=== PATIENT | male | born 1940 | race Two or more races ===

== ENCOUNTER 2017-04-20 19:51 | Inpatient (IN) | payer MEDICARE ==
[~2017-04-20] VITALS: Ht 170.2 cm; Wt 85.9 kg
[~2017-04-20 19:51] MED LIST: ATOR40TA PO; CARV25TA2 PO; CLOP75TA15 PO; FENO145T38 PO; FISH OIL 500 M1 EACH PO; HYDR25SU32 RC; PANT40TA4 PO; RIVA15TA PO
[2017-04-20] MEDS ORDERED: normal saline 1000ML IV soln IVB STA (20:11)
[2017-04-20] MEDS ORDERED: famotidine/PF 10 mg/ml inj IV ONE ×2 (20:15→22:05)
[2017-04-20] MEDS ORDERED: methylPREDNISolone sod succ 125mg/2ml vial IV ONE ×2 (20:15→22:35)
[2017-04-20] MEDS ORDERED: diphenhydrAMINE 50 mg/ml inj IV ONE (20:15)
[2017-04-20] MEDS ORDERED: epiNEPHrine 1 mg/ml inj IM ONE (20:15)
[2017-04-20 20:24] LABS: BASOPHILS # (AUTO) 0.1 X10'3 (0-0.2); BASOPHILS % (AUTO) 1.1 % (0-1); EOSINOPHILS # (AUTO) 0.2 X10'3 (0-0.9); EOSINOPHILS % (AUTO) 3.5 % (0-6); HEMATOCRIT 32.9 % (42.0-52.0); LYMPHOCYTES % (AUTO) 38.9 % (21-51); MEAN CORPUSCULAR HGB CONC 33.5 % (33.0-36.5); MEAN CORPUSCULAR VOLUME 86.8 FL (78-98); MEAN PLATELET VOLUME 8.9 FL (7.4-10.4); MONOCYTES # (AUTO) 0.7 X10'3 (0-0.9); MONOCYTES % (AUTO) 13.2 % (2-12); NEUTROPHILS # (AUTO) 2.3 X10'3 (1.8-7.7); NEUTROPHILS % (AUTO) 43.3 % (42-75); PLATELET COUNT 175 X10'3 (140-440); RED BLOOD COUNT 3.78 X10'6 (4.70-6.10); RED CELL DISTRIBUTION WIDTH 17.4 % (11.5-14.5); WHITE BLOOD COUNT 5.2 X10'3 (4.5-11.0)
[2017-04-20] MEDS ORDERED: PANT-47 PO (20:41)
[2017-04-20] MEDS ORDERED: METF500T PO (20:41)
[2017-04-20] MEDS ORDERED: SOTA80TA69 PO (20:41)
[2017-04-20] MEDS ORDERED: LISI-600 PO (20:41)
[2017-04-20 20:47] LABS: ALANINE AMINOTRANSFERASE 29 U/L (12-78); ALBUMIN 3.1 G/DL (3.4-5.0); ALBUMIN/GLOBULIN RATIO 0.8 (1.1-1.5); ALKALINE PHOSPHATASE 51 IU/L (46-116); ANION GAP 12 (8-16); ASPARTATE AMINO TRANSFERASE 18 U/L (10-37); BILIRUBIN,TOTAL 0.3 MG/DL (0.1-1.0); BLOOD UREA NITROGEN 25 MG/DL (7-18); CALCIUM 8.7 MG/DL (8.5-10.1); CHLORIDE 109 MMOL/L (99-107); GLUCOSE 119 MG/DL (70-104); POTASSIUM 4.4 MMOL/L (3.5-5.1); SODIUM 143 MMOL/L (135-145); TOTAL CARBON DIOXIDE 22.1 MMOL/L (24-32); TOTAL PROTEIN 7.1 G/DL (6.4-8.2); eGFR 25 ML/MIN
[2017-04-20] MEDS ORDERED: temazepam 15mg capsule PO PRN (21:00)
[2017-04-20] MEDS ORDERED: epiNEPHrine 1 mg/ml inj IM STA (21:44)
[2017-04-20] MEDS ORDERED: diphenhydrAMINE 50 mg/ml inj IM ONE (22:05)
[2017-04-20] MEDS ORDERED: acetaminophen 325mg tablet PO PRN ×2 (22:20)
[2017-04-20] MEDS ORDERED: diphenhydrAMINE 50 mg/ml inj IV PRN (22:20)
[2017-04-20] MEDS ORDERED: furosemide 10 MG/1 ML 10ml inj IV ONE (22:20)
[2017-04-20] MEDS ORDERED: magnesium hydroxide 30ml (MOM) UD suspension PO PRN (22:20)
[2017-04-20] MEDS ORDERED: bisacodyl 10mg suppository rectal RC PRN (22:20)
[2017-04-20] MEDS ORDERED: morphine 2 MG/ML inj. syringe IV PRN ×2 (22:20)
[2017-04-20] MEDS ORDERED: ondansetron/PF 4mg/2ml inj IV PRN (22:20)
[2017-04-20] MEDS ORDERED: HYDROcodone/acetaminophen 10/325mg tab PO PRN (22:20)
[2017-04-20] MEDS ORDERED: acetaminophen 650mg rectal suppository RC PRN (22:20)
[2017-04-20] MEDS ORDERED: HYDROcodone/acetaminophen 5mg/325mg tablet PO PRN (22:20)
[2017-04-20] MEDS ORDERED: HYDROmorphone 1 mg/ml syringe IV PRN ×2 (22:20)
[2017-04-20] MEDS ORDERED: diphenhydrAMINE 25mg capsule PO PRN (22:20)
[2017-04-20] MEDS ORDERED: mag hydrox/Alum hydrox/simeth 30ml oral suspension PO PRN (22:20)
[2017-04-20] MEDS ORDERED: metoclopramide 5 mg/ml inj IV PRN (22:20)
[2017-04-20 22:24] LABS: CLARITY,URINE CLEAR (Clear); COLOR,URINE YELLOW (Yellow); GLUCOSE, URINE NEGATIVE (Neg); KETONES,URINE NEGATIVE (Neg); LEUKOCYTE ESTERASE ,URINE NEGATIVE (Neg); NITRITES, URINE NEGATIVE (Neg); OCCULT BLOOD,URINE NEGATIVE (Neg); PROTEIN,URINE NEGATIVE (Neg); UROBILINOGEN,URINE 0.2 E.U/dL (0.2-1.0)
[2017-04-20 22:31] LABS: UA COLLECTION TYPE CLN CATCH MIDSTREAM
[2017-04-20] MEDS ORDERED: glucagon, human recombinant 1mg kit SUBCUT PRN (22:35)
[2017-04-20] MEDS ORDERED: dextrose ORAL solution 15 GM/59 ML bottle PO PRN ×2 (22:35)
[2017-04-20] MEDS ORDERED: dextrose 50%-water 50ml dispensing syringe IV PRN ×2 (22:35)
[2017-04-20] MEDS ORDERED: MESSAGE TO PHARMACY PO ONE (22:35)
[2017-04-20 22:54] LABS: HEMOGLOBIN A1C 6.4 % (4.5-6.2)
[2017-04-20 23:01] LABS: MAGNESIUM 1.7 MG/DL (1.5-2.4)
[2017-04-21] MEDS ORDERED: epiNEPHrine 1 mg/ml inj IM SCH
[2017-04-21] MEDS ORDERED: epiNEPHrine 1 mg/ml inj IM ONE
[2017-04-21] MEDS: diphenhydrAMINE 50 mg/ml inj IV SCH ×3 (00:12→08:00)
[2017-04-21] MEDS: famotidine/PF 10 mg/ml inj IV SCH ×3 (02:00→20:42)
[2017-04-21] MEDS: methylPREDNISolone sod succ 125mg/2ml vial IV SCH ×3 (02:08→16:21)
[2017-04-21 02:35] LABS: BASOPHILS % (AUTO) 0.2 % (0-1); EOSINOPHILS # (AUTO) 0.1 X10'3 (0-0.9); HEMATOCRIT 34.5 % (42.0-52.0); HEMOGLOBIN 11.7 g/dl (14.0-17.9); LYMPHOCYTES # (AUTO) 0.9 X10'3 (1.1-4.8); LYMPHOCYTES % (AUTO) 17.4 % (21-51); MEAN CORPUSCULAR HEMOGLOBIN 29.3 PG (27.0-31.0); MEAN CORPUSCULAR HGB CONC 33.9 % (33.0-36.5); MEAN CORPUSCULAR VOLUME 86.3 FL (78-98); MEAN PLATELET VOLUME 8.9 FL (7.4-10.4); MONOCYTES % (AUTO) 0.9 % (2-12); NEUTROPHILS # (AUTO) 4.3 X10'3 (1.8-7.7); NEUTROPHILS % (AUTO) 80.5 % (42-75); PLATELET COUNT 175 X10'3 (140-440); RED CELL DISTRIBUTION WIDTH 16.6 % (11.5-14.5); WHITE BLOOD COUNT 5.4 X10'3 (4.5-11.0)
[2017-04-21 02:53] LABS: ALANINE AMINOTRANSFERASE 26 U/L (12-78); ALBUMIN 3.3 G/DL (3.4-5.0); ALBUMIN/GLOBULIN RATIO 0.8 (1.1-1.5); ALKALINE PHOSPHATASE 45 IU/L (46-116); ANION GAP 11 (8-16); ASPARTATE AMINO TRANSFERASE 19 U/L (10-37); BILIRUBIN,TOTAL 0.3 MG/DL (0.1-1.0); BLOOD UREA NITROGEN 29 MG/DL (7-18); BUN/CREATININE RATIO 13.8 (5.4-32.0); CALCIUM 9.1 MG/DL (8.5-10.1); CHLORIDE 108 MMOL/L (99-107); GLUCOSE 190 MG/DL (70-104); POTASSIUM 3.8 MMOL/L (3.5-5.1); SODIUM 143 MMOL/L (135-145); TOTAL CARBON DIOXIDE 24.2 MMOL/L (24-32); TOTAL PROTEIN 7.6 G/DL (6.4-8.2); eGFR 31 ML/MIN
[2017-04-21] MEDS: clopidogrel 75mg tablet PO SCH (06:07)
[2017-04-21] MEDS ORDERED: non-formulary drug (Carvedilol 1 TAB) PO SCH (08:00)
[2017-04-21] MEDS ORDERED: clopidogrel 75mg tablet PO SCH (08:00)
[2017-04-21 08:15] VITALS: BP 143/72
[2017-04-21] MEDS: pantoprazole 40mg Tablet.DR PO SCH (08:41)
[2017-04-21] MEDS: docusate sod 100mg capsule PO SCH ×2 (08:41→20:42)
[2017-04-21] MEDS: carVEDilol 12.5mg tablet PO SCH ×2 (08:42→20:00)
[2017-04-21] MEDS: sotalol 80mg tablet PO SCH ×2 (08:44→20:00)
[2017-04-21] MEDS: fenofibrate 145mg tablet PO SCH (08:44)
[2017-04-21] MEDS: heparin, porcine 5000 units/ml vial SQ SCH ×2 (08:45→20:41)
[2017-04-21 11:00] VITALS: BP 116/61
[2017-04-21] MEDS: insulin Lispro (HumaLOG) vial - multi-dose SQ SCH ×2 (14:07→19:13)
[2017-04-21] MEDS: Potassium Cl inj 20 MEQ in normal saline 1000ml 990 ML IV SCH ×2 (14:13→22:35)
[2017-04-21 17:29] VITALS: BP 119/57
[2017-04-21 19:00] VITALS: BP 114/53
[2017-04-21] MEDS ORDERED: ATORVASTATIN CALCIUM 40 MG PO SCH (21:00)
[2017-04-21] MEDS ORDERED: atorvastatin 20mg tablet PO SCH (21:00)
[2017-04-21 23:00] VITALS: BP 97/42
[2017-04-22] MEDS ORDERED: potassium Cl 20mEq in NS 1,000 ML IV SCH (00:08)
[2017-04-22] MEDS: methylPREDNISolone sod succ 125mg/2ml vial IV SCH ×2 (00:43→08:09)
[2017-04-22] MEDS ORDERED: potassium Cl 20mEq in NS 1,000 ML IV ONE (00:57)
[2017-04-22 03:00] VITALS: BP 114/51
[2017-04-22 06:00] VITALS: BP 103/72
[2017-04-22 07:28] LABS: ALANINE AMINOTRANSFERASE 26 U/L (12-78); ALBUMIN/GLOBULIN RATIO 0.8 (1.1-1.5); ALKALINE PHOSPHATASE 35 IU/L (46-116); ANION GAP 12 (8-16); ASPARTATE AMINO TRANSFERASE 30 U/L (10-37); BILIRUBIN,TOTAL 0.4 MG/DL (0.1-1.0); BLOOD UREA NITROGEN 42 MG/DL (7-18); BUN/CREATININE RATIO 22.1 (5.4-32.0); CALCIUM 8.4 MG/DL (8.5-10.1); CHLORIDE 109 MMOL/L (99-107); GLUCOSE 179 MG/DL (70-104); POTASSIUM 4.1 MMOL/L (3.5-5.1); SODIUM 143 MMOL/L (135-145); TOTAL CARBON DIOXIDE 22.5 MMOL/L (24-32); TOTAL PROTEIN 6.9 G/DL (6.4-8.2); eGFR 34 ML/MIN
[2017-04-22] MEDS ORDERED: losartan 50mg tablet PO SCH (08:00)
[2017-04-22] MEDS: pantoprazole 40mg Tablet.DR PO SCH (08:07)
[2017-04-22] MEDS: famotidine/PF 10 mg/ml inj IV SCH (08:07)
[2017-04-22] MEDS: clopidogrel 75mg tablet PO SCH (08:07)
[2017-04-22] MEDS: docusate sod 100mg capsule PO SCH (08:07)
[2017-04-22] MEDS: sotalol 80mg tablet PO SCH (09:25)
[2017-04-22] MEDS: carVEDilol 12.5mg tablet PO SCH (09:26)
[2017-04-22] MEDS: fenofibrate 145mg tablet PO SCH (09:26)
[2017-04-22] MEDS: heparin, porcine 5000 units/ml vial SQ SCH (09:27)
[2017-04-22] MEDS ORDERED: pneumococcal 23-VAL P-sac vacc 25 mcg/0.5ml vial IMVAC ONE (10:00)
[2017-04-22] MEDS: insulin Lispro (HumaLOG) vial - multi-dose SQ SCH (10:24)
[2017-04-22 11:00] VITALS: BP 114/54
[2017-04-22] MEDS ORDERED: DIPH-423 PO (11:59)
[2017-04-22] MEDS ORDERED: PRED10TA23 PO (11:59)
[2017-04-22] MEDS ORDERED: EPIN0.3P8 IM (11:59)
[2017-04-22] MEDS ORDERED: LOSA50TA37 PO (11:59)
== END 2017-04-22 13:30 | disposition home or self-care (01) | DRG 683 ==
LOC: ER 19:51 → ED HOLD 22:20 → EDBEDREQ 04-21 04:00 → PCU 3S 04-21 08:36
PROVIDERS: ADMIT Family Medicine; ATTEND Internal Medicine
DX: N17.9 Acute kidney failure, unspecified (principal); I42.0 Dilated cardiomyopathy; E11.22 Type 2 diabetes mellitus with diabetic chronic kidney disease; E11.65 Type 2 diabetes mellitus with hyperglycemia; E78.00 Pure hypercholesterolemia, unspecified; E78.5 Hyperlipidemia, unspecified; I12.9 Hypertensive chronic kidney disease with stage 1 through stage 4 chronic kidney disease, or unspecified chronic kidney disease; I25.10 Atherosclerotic heart disease of native coronary artery without angina pectoris; K21.9 Gastro-esophageal reflux disease without esophagitis; N18.3 Chronic kidney disease, stage 3 (moderate); T46.4X5A Adverse effect of angiotensin-converting-enzyme inhibitors, initial encounter; T78.3XXA Angioneurotic edema, initial encounter; I25.2 Old myocardial infarction; Z95.1 Presence of aortocoronary bypass graft; Z95.810 Presence of automatic (implantable) cardiac defibrillator; Z88.0 Allergy status to penicillin; Z88.6 Allergy status to analgesic agent; Z79.02 Long term (current) use of antithrombotics/antiplatelets; Z79.899 Other long term (current) drug therapy; Z79.84 Long term (current) use of oral hypoglycemic drugs; Z86.718 Personal history of other venous thrombosis and embolism; Z86.79 Personal history of other diseases of the circulatory system; Z87.11 Personal history of peptic ulcer disease; Y92.89 Other specified places as the place of occurrence of the external cause
CPT/HCPCS: 36415; 71045; 80053; 81003; 82948; 83036; 83735; 83880; 84484; 85025; 86885; 86900; 86901; 87070; 93005; 93306; 96361; 96372; 96374; 96375; 99285; J0171; J1200; J1644; J1940; J2930; J3480; J3490; J7030

== ENCOUNTER 2017-08-29 10:21 | Emergency (ER) | payer MEDICARE ==
[~2017-08-29] VITALS: Ht 177.8 cm; Wt 82.8 kg
[~2017-08-29 10:21] MED LIST changes: +DIPH-423 PO; +EPIN0.3P8 IM; -HYDR25SU32 RC; +LOSA50TA37 PO; +PANT-47 PO; -PANT40TA4 PO; -RIVA15TA PO; +SOTA80TA73 PO
[2017-08-29 10:43] LABS: BASOPHILS % (AUTO) 0.4 % (0-1); EOSINOPHILS # (AUTO) 0.1 X10'3 (0-0.9); EOSINOPHILS % (AUTO) 1.6 % (0-6); HEMOGLOBIN 12.2 g/dl (14.0-17.9); LYMPHOCYTES # (AUTO) 1.8 X10'3 (1.1-4.8); LYMPHOCYTES % (AUTO) 35.4 % (21-51); MEAN CORPUSCULAR HEMOGLOBIN 29.8 PG (27.0-31.0); MEAN CORPUSCULAR HGB CONC 33.8 % (33.0-36.5); MEAN CORPUSCULAR VOLUME 88.1 FL (78-98); MEAN PLATELET VOLUME 8.8 FL (7.4-10.4); MONOCYTES # (AUTO) 0.4 X10'3 (0-0.9); MONOCYTES % (AUTO) 8.2 % (2-12); NEUTROPHILS # (AUTO) 2.7 X10'3 (1.8-7.7); NEUTROPHILS % (AUTO) 54.4 % (42-75); PLATELET COUNT 146 X10'3 (140-440); RED BLOOD COUNT 4.09 X10'6 (4.70-6.10); RED CELL DISTRIBUTION WIDTH 16.2 % (11.5-14.5)
[2017-08-29 10:53] LABS: INR 1.1 INR; PARTIAL THROMBOPLASTIN TIME 24 SECONDS (22-32); PROTHROMBIN TIME 11.3 SECONDS (9.0-12.0)
[2017-08-29 10:57] LABS: ALANINE AMINOTRANSFERASE 26 U/L (12-78); ALBUMIN 3.6 G/DL (3.4-5.0); ALBUMIN/GLOBULIN RATIO 1.1 (1.1-1.5); ALKALINE PHOSPHATASE 47 IU/L (46-116); ANION GAP 10 (8-16); ASPARTATE AMINO TRANSFERASE 18 U/L (10-37); BILIRUBIN,TOTAL 0.5 MG/DL (0.1-1.0); BLOOD UREA NITROGEN 37 MG/DL (7-18); BUN/CREATININE RATIO 19.6 (5.4-32.0); CHLORIDE 108 MMOL/L (99-107); CREATININE 1.89 MG/DL (0.60-1.10); GLUCOSE 177 MG/DL (70-104); POTASSIUM 4.8 MMOL/L (3.5-5.1); SODIUM 139 MMOL/L (135-145); TOTAL CARBON DIOXIDE 21.4 MMOL/L (24-32); eGFR 35 ML/MIN
[2017-08-29 11:07] VITALS: BP 137/75
[2017-08-29] MEDS ORDERED: METH4TAB81 PO (11:34)
[2017-08-29] MEDS ORDERED: GABA-530 PO (11:34)
== END 2017-08-29 11:51 | disposition home or self-care (01) ==
LOC: ER 10:22
DX: R07.9 Chest pain, unspecified (principal); M54.2 Cervicalgia; I25.10 Atherosclerotic heart disease of native coronary artery without angina pectoris; E78.00 Pure hypercholesterolemia, unspecified; I10 Essential (primary) hypertension; I25.2 Old myocardial infarction; E11.9 Type 2 diabetes mellitus without complications; Z86.718 Personal history of other venous thrombosis and embolism; Z95.1 Presence of aortocoronary bypass graft; Z95.0 Presence of cardiac pacemaker; Z88.0 Allergy status to penicillin; Z88.6 Allergy status to analgesic agent; Z79.899 Other long term (current) drug therapy
CPT/HCPCS: 36415; 71045; 80053; 84484; 85025; 85610; 85730; 93005; 99285

== ENCOUNTER 2018-08-09 21:45 | Emergency (ER) | payer MEDICARE ==
[~2018-08-09] VITALS: Ht 175.3 cm; Wt 80.0 kg
[~2018-08-09 21:45] MED LIST changes: +GABA-530 PO; -LOSA50TA37 PO; +LOSA50TA64 PO; +METH4TAB81 PO
[2018-08-09] MEDS ORDERED: normal saline 1000ML IV soln IVB ONE (22:05)
[2018-08-09] MEDS ORDERED: diphenhydrAMINE 25mg capsule PO ONE (22:05)
[2018-08-09] MEDS ORDERED: meclizine 12.5mg tablet PO ONE (22:05)
[2018-08-09 22:25] LABS: BASOPHILS % (AUTO) 0.8 % (0-1); EOSINOPHILS # (AUTO) 0.2 X10'3 (0-0.9); EOSINOPHILS % (AUTO) 3.9 % (0-6); HEMOGLOBIN 12.4 g/dl (14.0-17.9); LYMPHOCYTES % (AUTO) 36.9 % (21-51); MEAN CORPUSCULAR HEMOGLOBIN 29.3 PG (27.0-31.0); MEAN CORPUSCULAR HGB CONC 33.4 g/dL (33.0-36.5); MEAN CORPUSCULAR VOLUME 87.7 FL (78-98); MONOCYTES # (AUTO) 0.9 X10'3 (0-0.9); MONOCYTES % (AUTO) 15.6 % (2-12); NEUTROPHILS # (AUTO) 2.4 X10'3 (1.8-7.7); NEUTROPHILS % (AUTO) 42.8 % (42-75); PLATELET COUNT 136 X10'3 (140-440); RED BLOOD COUNT 4.22 X10'6 (4.70-6.10); RED CELL DISTRIBUTION WIDTH 15.9 % (11.5-14.5); WHITE BLOOD COUNT 5.5 X10'3 (4.5-11.0)
[2018-08-09 22:38] LABS: ALANINE AMINOTRANSFERASE 26 U/L (12-78); ALBUMIN 3.4 G/DL (3.4-5.0); ALBUMIN/GLOBULIN RATIO 0.9 (1.1-1.5); ALKALINE PHOSPHATASE 68 IU/L (46-116); ANION GAP 10 (8-16); ASPARTATE AMINO TRANSFERASE 16 U/L (10-37); BILIRUBIN,TOTAL 0.3 MG/DL (0.1-1.0); BLOOD UREA NITROGEN 27 MG/DL (7-18); BUN/CREATININE RATIO 22.1 (5.4-32.0); CALCIUM 9.4 MG/DL (8.5-10.1); CHLORIDE 106 MMOL/L (99-107); CREATININE 1.22 MG/DL (0.60-1.10); GLUCOSE 115 MG/DL (70-104); MAGNESIUM 1.9 MG/DL (1.5-2.4); POTASSIUM 3.7 MMOL/L (3.5-5.1); SODIUM 138 MMOL/L (135-145); TOTAL CARBON DIOXIDE 21.7 MMOL/L (24-32); eGFR 57 ML/MIN
[2018-08-09] MEDS ORDERED: MECL-111 PO (22:51)
[2018-08-09 23:28] VITALS: BP 133/69
== END 2018-08-09 23:30 | disposition home or self-care (01) ==
LOC: ER 21:45
DX: R42 Dizziness and giddiness (principal); I25.10 Atherosclerotic heart disease of native coronary artery without angina pectoris; E78.00 Pure hypercholesterolemia, unspecified; I10 Essential (primary) hypertension; I25.2 Old myocardial infarction; E11.9 Type 2 diabetes mellitus without complications; Z86.718 Personal history of other venous thrombosis and embolism; Z95.1 Presence of aortocoronary bypass graft; Z95.0 Presence of cardiac pacemaker; Z88.0 Allergy status to penicillin; Z88.6 Allergy status to analgesic agent; Z79.899 Other long term (current) drug therapy
CPT/HCPCS: 36415; 71045; 80053; 83735; 84484; 85025; 93005; 96360; 99284; J7030; J8597; Q0163

== ENCOUNTER 2022-07-28 08:04 | Outpatient (CLI) | payer MEDICARE ==
[~2022-07-28 08:04] MED LIST changes: +APIX5TAB3 PO; -ATOR40TA PO; +ATOR40TA72 PO; -CARV25TA2 PO; -CLOP75TA15 PO; +CLOP75TA34 PO; -DIPH-423 PO; -EPIN0.3P8 IM; +FENO145T25 PO; -FENO145T38 PO; -FISH OIL 500 M1 EACH PO; +FLO0.4C PO; +FURO40TA4 PO; -GABA-530 PO; +LINA5TAB4 PO; -LOSA50TA64 PO; -METH4TAB81 PO; -PANT-47 PO; +POTA20PA40 PO; +SACU1TAB PO; +SOTA80TA PO; -SOTA80TA73 PO
== END 2022-07-28 23:59 | disposition home or self-care (01) ==
LOC: CARD DIAG 08:04
PROVIDERS: ATTEND Internal Medicine Cardiovascular Disease
DX: I08.1 Rheumatic disorders of both mitral and tricuspid valves (principal); R06.02 Shortness of breath; I42.9 Cardiomyopathy, unspecified
CPT/HCPCS: 93306

== ENCOUNTER 2022-11-21 10:24 | Inpatient (IN) | payer MEDICARE ==
[~2022-11-21] VITALS: Ht 170.2 cm; Wt 77.9 kg
[~2022-11-21 10:24] MED LIST changes: +AMI200T PO; -CLOP75TA34 PO; +DAPA10TA PO; +EMPA10TA PO; -FENO145T25 PO; +POTA10CA85 PO; -POTA20PA40 PO; +SACU1TAB; -SOTA80TA PO
[2022-11-21 11:08] LABS: BASOPHILS % (AUTO) 0.3 % (0-1); EOSINOPHILS % (AUTO) 0 % (0-6); HEMOGLOBIN 7.8 g/dl (14.0-17.9); LYMPHOCYTES # (AUTO) 0.3 X10'3 (1.1-4.8); LYMPHOCYTES % (AUTO) 6.4 % (21-51); MEAN CORPUSCULAR HEMOGLOBIN 32.6 PG (27.0-31.0); MEAN CORPUSCULAR HGB CONC 32.6 g/dL (33.0-36.5); MEAN CORPUSCULAR VOLUME 100.1 FL (78-98); MONOCYTES # (AUTO) 0.5 X10'3 (0-0.9); MONOCYTES % (AUTO) 9.4 % (2-12); NEUTROPHILS # (AUTO) 4.3 X10'3 (1.8-7.7); NEUTROPHILS % (AUTO) 83.9 % (42-75); PLATELET COUNT 139 X10'3 (140-440); RED CELL DISTRIBUTION WIDTH 16.2 % (11.5-14.5); WHITE BLOOD COUNT 5.2 X10'3 (4.5-11.0)
[2022-11-21 11:19] LABS: ALANINE AMINOTRANSFERASE 19 U/L (12-78); ALBUMIN 2.6 G/DL (3.4-5.0); ALBUMIN/GLOBULIN RATIO 0.7 (1.1-1.5); ALKALINE PHOSPHATASE 111 IU/L (46-116); ANION GAP 10 (8-16); ASPARTATE AMINO TRANSFERASE 20 U/L (10-37); BLOOD UREA NITROGEN 35 MG/DL (7-18); BUN/CREATININE RATIO 24.3 (10.0-20.0); CALCIUM 8.4 MG/DL (8.5-10.1); CHLORIDE 102 MMOL/L (99-107); CREATININE 1.44 MG/DL (0.60-1.10); GLUCOSE 129 MG/DL (70-104); POTASSIUM 4.8 MMOL/L (3.5-5.1); SODIUM 134 MMOL/L (135-145); TOTAL CARBON DIOXIDE 22.1 MMOL/L (24-32); TOTAL PROTEIN 6.4 G/DL (6.4-8.2); eCRCL 36 ML/MIN; eGFR 47 ML/MIN
[2022-11-21 11:28] LABS: PRO BRAIN NATRIURETIC PEPTIDE 5490 PG/ML (0-450)
[2022-11-21 12:18] LABS: INR 1.4 INR; PROTHROMBIN TIME 15.2 SECONDS (9.0-12.0)
[2022-11-21] MEDS ORDERED: pantoprazole 40 MG vial IV ONE (13:20)
[2022-11-21 13:55] VITALS: BP 117/64; PULSE 77; RESP 22; TEMP 97.3
[2022-11-21 14:15] VITALS: BP 115/60; PULSE 78; RESP 19; TEMP 97.5
[2022-11-21 14:38] LABS: OCCULT BLOOD STOOL POSITIVE (Neg)
--- NOTE | 2022-11-21 15:07 | NUR ---
JOHN HELMQ PROTONIX FROM PHARMACY
--- NOTE | 2022-11-21 15:08 | NUR ---
PHARMACIST WILL CHG PROTONIX ORD SO RN MAY OBTAIN FROM [employer].
[2022-11-21] MEDS ORDERED: pantoprazole 40 MG/NS 100ML add-vantage BAG IV ONE (15:10)
[2022-11-21 15:15] VITALS: BP 114/56; PULSE 74; RESP 28; TEMP 97.7
[2022-11-21] MEDS ORDERED: magnesium Cl slow-release 64mg tablet PO PRN (15:15)
[2022-11-21] MEDS ORDERED: HYDROcodone/acetaminophen 5mg/325mg tablet PO PRN (15:15)
[2022-11-21] MEDS ORDERED: potassium Cl 40MEQ/1/2NS 520ml 520 ML IV PRN (15:15)
[2022-11-21] MEDS ORDERED: mag hydrox/Alum hydrox/simeth 30ml oral suspension PO PRN (15:15)
[2022-11-21] MEDS ORDERED: potassium Cl 20 mEq SR tablet PO PRN ×2 (15:15)
[2022-11-21] MEDS ORDERED: ondansetron 4mg rapidly disintigrating tab PO PRN (15:15)
[2022-11-21] MEDS ORDERED: magnesium hydroxide 30ml (MOM) UD suspension PO PRN (15:15)
[2022-11-21] MEDS ORDERED: ondansetron/PF 4mg/2ml inj IV PRN (15:15)
[2022-11-21] MEDS ORDERED: HYDROcodone/acetaminophen 10/325mg tab PO PRN (15:15)
[2022-11-21] MEDS ORDERED: magnesium 4gm in 100ml NS 100 ML IV PRN (15:15)
[2022-11-21] MEDS ORDERED: acetaminophen 325mg tablet PO PRN ×2 (15:15)
[2022-11-21] MEDS ORDERED: magnesium 2GM in 50ml NS 50 ML IV PRN (15:15)
--- NOTE | 2022-11-21 15:46 | NUR ---
RN ATTEMPTING TO GET 2ND IV SO PROTONIX CAN BE ADMIN. BLOOD IS INFUSING AT THIS TIME. PT IS A HARD STICK.
[2022-11-21 16:15] VITALS: BP 114/71; PULSE 70; RESP 21; TEMP 97.8
--- NOTE | 2022-11-21 18:20 | NUR ---
RN CALLED BLOOD BANK TO CK HOW MANY UNITS OF BLOOD PT IS TO RECEIVE D/T NOT SHOWING ON ORD. CHARGE NURSE NOTIFIED. PER [place] PT IS TO RECEIVE 1 UNIT. UNIT TRANSFUSED.
[2022-11-21] MEDS: normal saline 1000ml 1,000 ML IV SCH (19:09)
[2022-11-21] MEDS: pantoprazole 40MG/NS 100ML BAG 100 ML IV SCH ×2 (19:09→19:10)
--- NOTE | 2022-11-21 19:25 | NUR ---
RN ATTEMPTED TO CALL REPORT AND WAS PUT ON HOLD FOR 5+MINS. RN WILL TRY AGAIN.
[2022-11-21] MEDS ORDERED: dextrose 50%-water 50ml dispensing syringe IV PRN ×2 (19:50)
[2022-11-21] MEDS ORDERED: insulin Lispro (HumaLOG) vial - multi-dose SQ SCH (19:50)
[2022-11-21] MEDS ORDERED: DEXTROSE 15 GM of carb/4 tabs (each vial/BOTTLE has 4 tablets) PO PRN ×2 (19:50)
[2022-11-21] MEDS ORDERED: glucagon, human recombinant 1mg kit SUBCUT PRN (19:50)
[2022-11-21] MEDS: docusate sod 100mg capsule PO SCH (20:00)
[2022-11-21] MEDS: K and/or MAG REPLACEMENT MC SCH (20:00)
[2022-11-21 20:21] VITALS: RESP 16; O2SAT 93
[2022-11-21 20:30] VITALS: BP 97/56; PULSE 60; RESP 16; TEMP 97.3; O2SAT 93
[2022-11-21] MEDS ORDERED: temazepam 15mg capsule PO PRN (21:00)
[2022-11-21] MEDS: insulin glargine (Lantus) pen - multi-dose SQ SCH (21:00)
[2022-11-21] MEDS: furosemide 40mg/4ml inj IV SCH (23:15)
[2022-11-22] VITALS (16 sets, daily range): BP systolic 93–110; BP diastolic 39–60; PULSE 65–78; RESP 13–24; TEMP 97–97.5; O2SAT 91–100
[2022-11-22] MEDS: pantoprazole 40MG/NS 100ML BAG 100 ML IV SCH ×5 (02:31→21:35)
[2022-11-22 06:42] LABS: ALANINE AMINOTRANSFERASE 15 U/L (12-78); ALBUMIN 2.3 G/DL (3.4-5.0); ALBUMIN/GLOBULIN RATIO 0.6 (1.1-1.5); ALKALINE PHOSPHATASE 102 IU/L (46-116); ANION GAP 16 (8-16); ASPARTATE AMINO TRANSFERASE 25 U/L (10-37); BILIRUBIN,TOTAL 2.3 MG/DL (0.1-1.0); BLOOD UREA NITROGEN 43 MG/DL (7-18); BUN/CREATININE RATIO 35.5 (10.0-20.0); CALCIUM 8.3 MG/DL (8.5-10.1); CHLORIDE 104 MMOL/L (99-107); CREATININE 1.21 MG/DL (0.60-1.10); GLUCOSE 106 MG/DL (70-104); MAGNESIUM 2.3 MG/DL (1.5-2.4); SODIUM 134 MMOL/L (135-145); TOTAL PROTEIN 5.9 G/DL (6.4-8.2); eCRCL 42 ML/MIN; eGFR 57 ML/MIN
[2022-11-22 06:45] LABS: POTASSIUM 5.5 MMOL/L (3.5-5.1)
[2022-11-22 06:46] LABS: BASOPHILS # (AUTO) 0.1 X10'3 (0-0.2); BASOPHILS % (AUTO) 1.1 % (0-1); EOSINOPHILS % (AUTO) 0 % (0-6); HEMATOCRIT 29.3 % (42.0-52.0); HEMOGLOBIN 9.5 g/dl (14.0-17.9); LYMPHOCYTES # (AUTO) 0.4 X10'3 (1.1-4.8); LYMPHOCYTES % (AUTO) 6.3 % (21-51); MEAN CORPUSCULAR HEMOGLOBIN 30.2 PG (27.0-31.0); MEAN CORPUSCULAR HGB CONC 32.5 g/dL (33.0-36.5); MEAN CORPUSCULAR VOLUME 93.1 FL (78-98); MEAN PLATELET VOLUME 8.3 FL (7.4-10.4); MONOCYTES # (AUTO) 0.7 X10'3 (0-0.9); MONOCYTES % (AUTO) 9.7 % (2-12); NEUTROPHILS # (AUTO) 5.8 X10'3 (1.8-7.7); NEUTROPHILS % (AUTO) 82.9 % (42-75); PLATELET COUNT 118 X10'3 (140-440); RED BLOOD COUNT 3.15 X10'6 (4.70-6.10); RED CELL DISTRIBUTION WIDTH 27.6 % (11.5-14.5)
--- NOTE | 2022-11-22 07:23 | NUR ---
[facility] CO2 14.0
[2022-11-22] MEDS: furosemide 40mg/4ml inj IV SCH ×2 (07:54→20:00)
[2022-11-22 08:33] LABS: ANISOCYTOSIS 3+; PLATELET ESTIMATE DECREASED
[2022-11-22 08:34] LABS: MICROCYTOSIS 1+
[2022-11-22 08:35] LABS: ACANTHOCYTES FEW; BURR CELLS 1+
[2022-11-22] MEDS: docusate sod 100mg capsule PO SCH ×2 (08:47→21:35)
--- NOTE | 2022-11-22 09:30 | NUR ---
AGREED WITH MOST OF ASSESSMENT OF WISNTON, BAD CREDIT COLLECTOR, CHARTED CHANGES
[2022-11-22] MEDS ORDERED: digoxin 250mcg/ml 2ml ampule IV ONE (12:45)
[2022-11-22 14:17] LABS: CREATINE KINASE 206 U/L (39-308); PRO BRAIN NATRIURETIC PEPTIDE 15580 PG/ML (0-450)
--- NOTE | 2022-11-22 15:15 | NUR ---
Patient in room PCU 3012. I have received report from SUMAN Farley and had the opportunity to ask questions and assume patient care.
[2022-11-22] MEDS ORDERED: fentaNYL/PF 50MCG/1 ML 2ML syringe ONE (17:49)
[2022-11-22] MEDS ORDERED: LIDOcaine Viscous 15ml cup ONE (17:49)
[2022-11-22] MEDS ORDERED: MIDAZolam 1 MG/ML 5ML VIAL ONE (17:49)
--- NOTE | 2022-11-22 18:30 | NUR ---
Problems reprioritized. Patient report given, questions answered & plan of care reviewed with JOHN Sanchez.
--- NOTE | 2022-11-22 18:31 | NUR ---
Patient in room PCU 3012. I have received report from JOHN Varghese and had the opportunity to ask questions and assume patient care. Patient is with IR for EGD at this time.
[2022-11-22] MEDS: K and/or MAG REPLACEMENT MC SCH ×2 (20:00→22:18)
[2022-11-22] MEDS: insulin glargine (Lantus) pen - multi-dose SQ SCH (21:00)
[2022-11-22] MEDS: DOBUTamine-DoBUTrex 500mg/D5W 250 ML IV SCH (21:34)
[2022-11-23] VITALS (30 sets, daily range): BP systolic 77–103; BP diastolic 36–58; PULSE 54–88; RESP 16–27; TEMP 96–97.8; O2SAT 90–98
[2022-11-23] MEDS: pantoprazole 40MG/NS 100ML BAG 100 ML IV SCH ×4 (01:00→15:11)
--- NOTE | 2022-11-23 01:38 | NUR ---
Patient seems more confused since coming back from EGD, in report I was told he was A&Ox4. Now he is requiring a non-rebreather mask and is struggling to breath, keeps pulling mask off. I cld Dr. Toledo and he ok a ABG and CXR.
[2022-11-23 02:04] LABS: ABG BASE EXCESS -12.3 mmol/L (-2.0-2.0); ABG HCO3 15.3 mmol/L (22.0-26.0); ABG OXYGEN SATURATION 98.8 % (94-97); ABG PCO2 (T) 40.5 mmHg (35.0-48.0); ABG PH (T) 7.191 (7.340-7.440); ABG PO2 (T) 151.6 mmHg (75.0-100.0); ALLEN'S TEST Modified; FCOHb 0.3 % (0.0-3.9); FHHb 1.2 % (0.0-5.0); FLOW 16 L/min; FMetHb 0.5 % (0.0-1.5); MODE MASK - NRB; PATIENT TEMPERATURE 36.4; TOTAL HEMOGLOBIN 10.4 G/dl (14.0-17.9)
--- NOTE | 2022-11-23 02:10 | NUR ---
Dr. Toledo at bedside, advises he will put orders in for Bicarb, Newell and a UA. He also advised me to increase Dobutamine drip to 3
[2022-11-23] MEDS ORDERED: sodium bicarbonate (8.4%) 1 mEq/ml syringe IV ONE ×3 (02:15→05:35)
[2022-11-23 02:52] LABS: BILIRUBIN,URINE NEGATIVE (Neg); CLARITY,URINE SLIGHTLY CLOUDY (Clear); COLOR,URINE YELLOW (Yellow); GLUCOSE, URINE NEGATIVE (Neg); KETONES,URINE NEGATIVE (Neg); LEUKOCYTE ESTERASE ,URINE NEGATIVE (Neg); OCCULT BLOOD,URINE NEGATIVE (Neg); PH,URINE 5.5 (4.8-8.0); PROTEIN,URINE NEGATIVE (Neg); UROBILINOGEN,URINE 0.2 E.U/dL (0.2-1.0)
[2022-11-23 02:58] LABS: UA COLLECTION TYPE FOLEY CATH
[2022-11-23 02:59] LABS: NITRITES, URINE NEGATIVE (Neg); SQUAMOUS EPITHELIAL CELL,UR FEW /LPF (FEW)
[2022-11-23 03:00] LABS: TRANSITIONAL EPI CELLS,URINE FEW /HPF
[2022-11-23 03:01] LABS: BACTERIA,URINE NONE SEEN /HPF (Neg); RBC,URINE 0-2 /HPF (0-2); RENAL CELLS, URINE FEW /HPF; WBC,URINE 0-4 /HPF (0-4)
--- NOTE | 2022-11-23 05:41 | NUR ---
Patient BP 79/41 and HR 54, Dr. Toledo cld and is at the bedside. Orders to follow.
--- NOTE | 2022-11-23 06:18 | NUR ---
Problems reprioritized. Patient report given, questions answered & plan of care reviewed with JOHN Elizabeth.
[2022-11-23 06:23] LABS: EOSINOPHILS % (AUTO) 0 % (0-6); HEMOGLOBIN 9.2 g/dl (14.0-17.9); MEAN CORPUSCULAR HEMOGLOBIN 30.5 PG (27.0-31.0); MEAN CORPUSCULAR HGB CONC 33.1 g/dL (33.0-36.5); MONOCYTES # (AUTO) 0.4 X10'3 (0-0.9); NEUTROPHILS # (AUTO) 5.9 X10'3 (1.8-7.7)
[2022-11-23 06:25] LABS: BASOPHILS % (AUTO) 0.2 % (0-1); HEMATOCRIT 27.8 % (42.0-52.0); LYMPHOCYTES # (AUTO) 0.1 X10'3 (1.1-4.8); LYMPHOCYTES % (AUTO) 2.2 % (21-51); NEUTROPHILS % (AUTO) 91.6 % (42-75); PLATELET COUNT 135 X10'3 (140-440); RED BLOOD COUNT 3.03 X10'6 (4.70-6.10); WHITE BLOOD COUNT 6.4 X10'3 (4.5-11.0)
[2022-11-23 06:32] LABS: ALANINE AMINOTRANSFERASE 15 U/L (12-78); ALBUMIN 2.3 G/DL (3.4-5.0); ALBUMIN/GLOBULIN RATIO 0.7 (1.1-1.5); ALKALINE PHOSPHATASE 94 IU/L (46-116); ANION GAP 10 (8-16); ASPARTATE AMINO TRANSFERASE 33 U/L (10-37); BILIRUBIN,TOTAL 2.1 MG/DL (0.1-1.0); BLOOD UREA NITROGEN 56 MG/DL (7-18); BUN/CREATININE RATIO 38.9 (10.0-20.0); CALCIUM 8.3 MG/DL (8.5-10.1); CHLORIDE 107 MMOL/L (99-107); CREATININE 1.44 MG/DL (0.60-1.10); GLUCOSE 99 MG/DL (70-104); MAGNESIUM 2.3 MG/DL (1.5-2.4); POTASSIUM 4.7 MMOL/L (3.5-5.1); SODIUM 138 MMOL/L (135-145); TOTAL CARBON DIOXIDE 20.6 MMOL/L (24-32); TOTAL PROTEIN 5.7 G/DL (6.4-8.2); eCRCL 36 ML/MIN; eGFR 47 ML/MIN
[2022-11-23 06:36] LABS: D-DIMER 5.65 MG/L FEU (0-0.50)
--- NOTE | 2022-11-23 07:04 | NUR ---
Patient in room PCU 3015. I have received report from Laura LOPEZ and had the opportunity to ask questions and assume patient care.
[2022-11-23] MEDS: furosemide 40mg/4ml inj IV SCH (08:00)
[2022-11-23] MEDS: K and/or MAG REPLACEMENT MC SCH ×2 (08:00→20:00)
[2022-11-23] MEDS: docusate sod 100mg capsule PO SCH ×2 (08:34→20:25)
[2022-11-23 08:42] LABS: ANISOCYTOSIS 3+; LARGE PLATELETS MODERATE; PLATELET ESTIMATE DECREASED
[2022-11-23 08:44] LABS: POLYCHROMASIA FEW
[2022-11-23] MEDS: furosemide 20 MG/2 ML vial IV SCH ×2 (09:50→20:24)
[2022-11-23] MEDS ORDERED: albumin (Human) 5% 250ml 250 ML IV ONE (10:35)
[2022-11-23] MEDS ORDERED: ipratropium/albuterol 3ml nebule NEB SCH (11:00)
[2022-11-23] MEDS: amiodarone 200mg tablet PO SCH (12:07)
[2022-11-23] MEDS: levoFLOXACIN-Levaquin 500mg/D5 100 ML IV SCH (12:09)
[2022-11-23] MEDS: normal saline 1000ml 1,000 ML IV SCH (15:42)
[2022-11-23] MEDS ORDERED: albumin (human) 25% 100 ML IV solution IV ONE (17:50)
--- NOTE | 2022-11-23 18:28 | NUR ---
Problems reprioritized. Patient report given, questions answered & plan of care reviewed with Rnoel LOPEZ.
--- NOTE | 2022-11-23 18:39 | NUR ---
Problems reprioritized. Patient report given, questions answered & plan of care reviewed with Clara LOPEZ and Claudia LOPEZ.
--- NOTE | 2022-11-23 18:40 | NUR ---
Nurse spoke with Provider Bargan regarding Protonix drip being changed to PO form as pt is on debutamine drip and Albumin was ordered which all medications are contraindicated to run in the same site. Provider agreed and gave order to have protonix PO 40mg BID.
[2022-11-23] MEDS: pantoprazole 40mg Tablet.DR PO SCH (20:25)
[2022-11-23] MEDS: insulin glargine (Lantus) pen - multi-dose SQ SCH (21:00)
--- NOTE | 2022-11-23 21:49 | NUR ---
Patient very restless and complaining that he cannot breath, Per Dr. Toledo given Morphine 0.5mg IV now.
[2022-11-23] MEDS ORDERED: morphine 2 MG/ML inj. syringe IV ONE (21:50)
[2022-11-23] MEDS: albumin (Human) 5% 250ml 250 ML IV SCH (21:55)
[2022-11-24] VITALS (13 sets, daily range): BP systolic 80–99; BP diastolic 34–59; PULSE 50–74; RESP 13–23; TEMP 96.6–97.8; O2SAT 81–99
[2022-11-24] MEDS: DOBUTamine-DoBUTrex 500mg/D5W 250 ML IV SCH (00:17)
[2022-11-24] MEDS: albumin (Human) 5% 250ml 250 ML IV SCH ×3 (04:58→15:35)
--- NOTE | 2022-11-24 06:17 | NUR ---
Problems reprioritized. Patient report given, questions answered & plan of care reviewed with Clara LOPEZ and Claudia RN. Pt stable at shift change.
[2022-11-24 06:31] LABS: BASOPHILS % (AUTO) 0 % (0-1); EOSINOPHILS % (AUTO) 0.1 % (0-6); HEMOGLOBIN 7.3 g/dl (14.0-17.9); LYMPHOCYTES # (AUTO) 0.2 X10'3 (1.1-4.8); LYMPHOCYTES % (AUTO) 2.3 % (21-51); MEAN CORPUSCULAR HGB CONC 31.6 g/dL (33.0-36.5); MEAN CORPUSCULAR VOLUME 94.7 FL (78-98); MEAN PLATELET VOLUME 8.3 FL (7.4-10.4); MONOCYTES # (AUTO) 0.3 X10'3 (0-0.9); MONOCYTES % (AUTO) 4.7 % (2-12); NEUTROPHILS # (AUTO) 6.8 X10'3 (1.8-7.7); NEUTROPHILS % (AUTO) 92.9 % (42-75); PLATELET COUNT 87 X10'3 (140-440); RED BLOOD COUNT 2.42 X10'6 (4.70-6.10); RED CELL DISTRIBUTION WIDTH 27.1 % (11.5-14.5); WHITE BLOOD COUNT 7.4 X10'3 (4.5-11.0)
[2022-11-24 06:38] LABS: ALANINE AMINOTRANSFERASE 17 U/L (12-78); ALBUMIN 3.5 G/DL (3.4-5.0); ALBUMIN/GLOBULIN RATIO 1.5 (1.1-1.5); ALKALINE PHOSPHATASE 69 IU/L (46-116); ANION GAP 9 (8-16); ASPARTATE AMINO TRANSFERASE 22 U/L (10-37); BILIRUBIN,TOTAL 1.9 MG/DL (0.1-1.0); BLOOD UREA NITROGEN 66 MG/DL (7-18); BUN/CREATININE RATIO 38.8 (10.0-20.0); CHLORIDE 106 MMOL/L (99-107); GLUCOSE 138 MG/DL (70-104); MAGNESIUM 2.4 MG/DL (1.5-2.4); POTASSIUM 4.7 MMOL/L (3.5-5.1); SODIUM 137 MMOL/L (135-145); TOTAL CARBON DIOXIDE 21.7 MMOL/L (24-32); TOTAL PROTEIN 5.9 G/DL (6.4-8.2); eCRCL 30 ML/MIN; eGFR 39 ML/MIN
[2022-11-24 06:45] LABS: ANISOCYTOSIS 3+; LARGE PLATELETS FEW; PLATELET ESTIMATE DECREASED
[2022-11-24 06:46] LABS: ACANTHOCYTES 1+; BURR CELLS 2+
[2022-11-24] MEDS: furosemide 20 MG/2 ML vial IV SCH ×2 (08:00→20:00)
[2022-11-24] MEDS: pantoprazole 40mg Tablet.DR PO SCH ×2 (08:00→20:00)
[2022-11-24] MEDS: K and/or MAG REPLACEMENT MC SCH ×2 (08:00→20:00)
[2022-11-24] MEDS: amiodarone 200mg tablet PO SCH (08:00)
[2022-11-24] MEDS: docusate sod 100mg capsule PO SCH ×2 (08:00→20:00)
[2022-11-24] MEDS: levoFLOXACIN-Levaquin 500mg/D5 100 ML IV SCH (09:27)
[2022-11-24 11:36] LABS: PRO BRAIN NATRIURETIC PEPTIDE 24532 PG/ML (0-450)
[2022-11-24] MEDS ORDERED: acetaminophen 325mg tablet PO PRN (12:35)
[2022-11-24] MEDS: morphine 10mg/ml inj. IV PRN ×2 (12:54→14:37)
[2022-11-24] MEDS: morphine 10mg/0.5ml (conc. morphine) oral syringe PO PRN ×2 (16:18→18:21)
--- NOTE | 2022-11-24 18:27 | NUR ---
Problems reprioritized. Patient report given, questions answered & plan of care reviewed with Ronel LOPEZ.
--- NOTE | 2022-11-24 18:36 | NUR ---
Patient in room PCU 3015. I have received report from Clara LOPEZ and Claudia RN and had the opportunity to ask questions and assume patient care.
[2022-11-24] MEDS: LORazepam 2 mg/ml vial IV PRN (19:29)
[2022-11-24] MEDS ORDERED: sennosides/docusate sodium tablet PO SCH (20:00)
[2022-11-24] MEDS ORDERED: docusate sod 100mg capsule PO SCH (20:00)
[2022-11-24] MEDS: insulin glargine (Lantus) pen - multi-dose SQ SCH (21:00)
[2022-11-25] MEDS ORDERED: acetaminophen 325mg rectal suppository RC ONE (02:10)
[2022-11-25] MEDS ORDERED: scopolamine 1.5mg patch.TD72 (72-hour patch) TD SCH (02:10)
[2022-11-25] MEDS ORDERED: bisacodyl 10mg suppository rectal RC PRN (02:15)
[2022-11-25] MEDS ORDERED: ondansetron/PF 4mg/2ml inj IV PRN ×2 (02:15→02:20)
[2022-11-25] MEDS ORDERED: magnesium hydroxide 30ml (MOM) UD suspension PO PRN (02:20)
[2022-11-25] MEDS ORDERED: magnesium 2GM in 50ml NS 50 ML IV PRN (02:20)
[2022-11-25] MEDS ORDERED: potassium Cl 40MEQ/1/2NS 520ml 520 ML IV PRN (02:20)
[2022-11-25] MEDS ORDERED: acetaminophen 325mg tablet PO PRN (02:20)
[2022-11-25] MEDS ORDERED: mag hydrox/Alum hydrox/simeth 30ml oral suspension PO PRN (02:20)
[2022-11-25] MEDS ORDERED: acetaminophen 650mg rectal suppository RC ONE (02:20)
[2022-11-25] MEDS ORDERED: potassium Cl 20 mEq SR tablet PO PRN ×2 (02:20)
[2022-11-25] MEDS ORDERED: magnesium 4gm in 100ml NS 100 ML IV PRN (02:20)
[2022-11-25] MEDS ORDERED: magnesium Cl slow-release 64mg tablet PO PRN (02:20)
[2022-11-25 06:00] VITALS: BP 72/34; PULSE 53; RESP 14; TEMP 97.7; O2SAT 89
--- NOTE | 2022-11-25 06:19 | NUR ---
Problems reprioritized. Patient report given, questions answered & plan of care reviewed with Disha LOPEZ.
--- NOTE | 2022-11-25 06:21 | NUR ---
Patient in room U 3015. I have received report from Ronel LOPEZ and had the opportunity to ask questions and assume patient care. Addendum: 11/25/22 at 0621 by Disha Fay RN Amended: Links added.
[2022-11-25] MEDS: LORazepam 2 mg/ml vial IV PRN ×3 (07:24→15:29)
[2022-11-25] MEDS: morphine 10mg/0.5ml (conc. morphine) oral syringe PO PRN ×5 (07:24→15:33)
[2022-11-25 07:55] VITALS: RESP 14; O2SAT 89
[2022-11-25] MEDS ORDERED: docusate sod 100mg capsule PO SCH (08:00)
[2022-11-25] MEDS ORDERED: levoFLOXACIN-Levaquin 250mg/D5 50 ML IV SCH (08:00)
[2022-11-25] MEDS ORDERED: K and/or MAG REPLACEMENT MC SCH (08:00)
--- NOTE | 2022-11-25 09:30 | NUR ---
large gathering of family at bedside. they feel pt is in discomfort. Roxanol po given.
[2022-11-25 15:33] VITALS: RESP 12
--- NOTE | 2022-11-25 16:06 | NUR ---
RN IS TO DOCUMENT YES TO ALL APPLICABLE AREAS Pronouncement of :154 1. Time Physician Notified:[id number] 2. Date of :11/25/22 3. Time of : 1544 4. DNR/Withdraw life support documented:yes 5. Monitor strip has been placed on chart:yes 6. Assessment process is of one-minute duration and includes following criteria: a) Patient is unresponsive to all stimuli: y b) Pupils fixed and non-reactive:y c) Auscultation of precordium reveals absence of heart tones:y d) Auscultation of lungs reveals absence of breath sounds:y e) Absence of blood pressure / all vital signs:y f) QRS complexes are not present on monitor / EKG strip:y g) Pacer spikes without capture:y 4. Comments: Addendum: 11/25/22 at 1607 by Disha Fay RN Amended: Links added.
--- NOTE | 2022-11-25 18:36 | NUR ---
Problems reprioritized. Patient report given, questions answered & plan of care reviewed with Bhavesh LOPEZ. family remains gathered at bedside and hallway.Continue to wait yasmany and daxa. Andreea was called again to see what the delay in last picker was. They will get back to us.. Addendum: 11/25/22 at 1838 by Disha Fay RN Amended: Links added.
--- NOTE | 2022-11-25 18:46 | NUR ---
Zainab AND KAYLA ARRIVED FOR PICKUP OF . PERSONAL BELONGINGS TAKEN WITH FAMILY. PAPERWORK SIGNED BY LUKASZ. BODY DEPARRTED VIA [employer]. FAMILY LEFT WITH BRYAN AND KAYLA.
== END 2022-11-25 15:43 | DRG 871 ==
LOC: ER 10:24 → PCU 3S 15:30
PROVIDERS: ADMIT Family Medicine; ATTEND Family Medicine
PROC: 30233N1 Transfusion of Nonautologous Red Blood Cells into Peripheral Vein, Percutaneous Approach (ICD-10-PCS; principal; 2022-11-21)
PROC: 0W9B30Z Drainage of Left Pleural Cavity with Drainage Device, Percutaneous Approach (ICD-10-PCS; 2022-11-22)
PROC: 0W9930Z Drainage of Right Pleural Cavity with Drainage Device, Percutaneous Approach (ICD-10-PCS; 2022-11-22)
PROC: 0DB98ZX Excision of Duodenum, Via Natural or Artificial Opening Endoscopic, Diagnostic (ICD-10-PCS; 2022-11-22)
DX: A41.9 Sepsis, unspecified organism (principal); I50.23 Acute on chronic systolic (congestive) heart failure; J18.9 Pneumonia, unspecified organism; J80 Acute respiratory distress syndrome; I13.0 Hypertensive heart and chronic kidney disease with heart failure and stage 1 through stage 4 chronic kidney disease, or unspecified chronic kidney disease; I48.92 Unspecified atrial flutter; N17.9 Acute kidney failure, unspecified; Z51.5 Encounter for palliative care; Z66 Do not resuscitate; Z20.822 Contact with and (suspected) exposure to COVID-19; E11.22 Type 2 diabetes mellitus with diabetic chronic kidney disease; E78.00 Pure hypercholesterolemia, unspecified; I25.10 Atherosclerotic heart disease of native coronary artery without angina pectoris; I25.2 Old myocardial infarction; I44.0 Atrioventricular block, first degree; I45.4 Nonspecific intraventricular block; I48.0 Paroxysmal atrial fibrillation; K21.9 Gastro-esophageal reflux disease without esophagitis; N18.9 Chronic kidney disease, unspecified; K29.70 Gastritis, unspecified, without bleeding; K29.80 Duodenitis without bleeding; Z79.01 Long term (current) use of anticoagulants; D50.9 Iron deficiency anemia, unspecified; Z79.899 Other long term (current) drug therapy; Z80.1 Family history of malignant neoplasm of trachea, bronchus and lung; Z83.3 Family history of diabetes mellitus; Z86.718 Personal history of other venous thrombosis and embolism; Z87.11 Personal history of peptic ulcer disease; Z87.891 Personal history of nicotine dependence; Z88.0 Allergy status to penicillin; Z88.6 Allergy status to analgesic agent; Z95.1 Presence of aortocoronary bypass graft; Z95.810 Presence of automatic (implantable) cardiac defibrillator
CPT/HCPCS: 32555; 36415; 36430; 36600; 43239; 71045; 71046; 80053; 80162; 81001; 82272; 82550; 82803; 82948; 83605; 83735; 83880; 84145; 84484; 85008; 85018; 85025; 85379; 85610; 86885; 86900; 86901; 86920; 87040; 87081; 87811; 88305; 93005; 93306; 94664; 94760; 99152; 99285; A4314; A4615; A4620; A6212; A6449; C1729; C9113; G0378; J1160; J1250; J1815; J1940; J1956; J2060; J2250; J2270; J2274; J3010; J3490; J7030; J7040; P9016; P9045; P9047